=== PATIENT | male | born 1970 | race Caucasian/White ===

== ENCOUNTER → 2020-06-09 08:40 | Outpatient (CLI) | payer OTHER, SELFPAY ==
--- NOTE | ~2020-06-09 | XR_ITS ---
EXAMINATION: XR ankle LT min 3V DATE: 06/09/2020 09:05 INDICATION: Medial left ankle pain post twisting injury TECHNIQUE: Anteroposterior, oblique, mortise, and lateral views of the left ankle were obtained. COMPARISON: None. FINDINGS: Alignment is normal. No fracture. Joint spaces are well maintained. Moderate plantar calcaneal spur and small spur at the calcaneal insertion of the Achilles tendon. Mild soft tissue swelling about the lateral malleolus. IMPRESSION: 1. Calcaneal enthesophytes. No acute osseous abnormality. Reviewed, dictated and finalized at location A. NG ROW BOSS
== END ==
PROVIDERS: PCP Family Medicine; Visit Provider Family Medicine
DX: M77.32 Calcaneal spur, left foot (principal); M77.8 Other enthesopathies, not elsewhere classified
CPT/HCPCS: 73610

== ENCOUNTER → 2020-08-30 13:30 | Outpatient (CLI) | payer OTHER, SELFPAY ==
--- NOTE | ~2020-08-30 | MR_ITS ---
EXAMINATION: MR knee RT wo con DATE: 08/30/2020 14:11 INDICATION: Right knee pain TECHNIQUE: Magnetic resonance imaging (MRI) of the right knee was performed without intravenous contr ast. Sequences included coronal PD-weighted FSE, coronal PD-weighted FS FSE, sagittal T2-weighted FS E, sagittal PD-weighted FS FSE and axial PD weighted fat saturated FSE. COMPARISON: Right knee radiographs dated 08/23/2020 FINDINGS: Medial compartment: Medial meniscus is normal. Mild chondral surface regularity along the anterior weightbearing medial f emoral condyle. Mild chondral swelling along the lateral aspect of the medial tibial plateau along th e shoulder the intercondylar eminence. Lateral compartment: Lateral meniscus is normal. Partial-thickness chondral fissuring at the junction of the central and m id thirds of the lateral tibial plateau. Normal cartilage along the weightbearing lateral femoral con dyle. Patellofemoral compartment: Partial-thickness chondral fissuring at the cephalad third of the medial patellar facet. Small region of partial-thickness chondral fissuring at the inferior aspect of the medial trochlea. Ligaments and tendons: Anterior and posterior cruciate ligaments are normal. The medial collateral ligament and fibular ana ateral ligament complex are normal. The extensor mechanism is normal. The visualized medial and later al hamstring tendons as well as the iliotibial band are normal. Fluid: Physiologic amount of fluid in the joint space. No loose osteochondral bodies identified. Very small Eaton's cyst. Osseous/other: Normal marrow signal. No fracture or pathologic marrow replacing process. IMPRESSION: 1. 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 2. Very small Eaton's cyst. Reviewed, dictated and finalized at location B. BLE LINEMAN IMPRESSION: 1. Mild tricompartmental osteoarthritis with regions of moderate grade chondrom alacia in all 3 compartments. 2. Very small Eaton's cyst.
== END ==
PROVIDERS: PCP Family Medicine; Visit Provider Nurse Practitioner Family
DX: M17.11 Unilateral primary osteoarthritis, right knee (principal)
CPT/HCPCS: 73721

== ENCOUNTER 2020-10-12 15:00 | Outpatient (RCR) | payer OTHER, SELFPAY ==
--- NOTE | 2020-09-01 15:45 | PTOPEVAL ---
Thank you for referring Kalen Thurston to [facility].? The patient is scheduled to be seen for therapy? 2 x/week for 5 weeks. Please review, sign, date and return this plan of care DESI. I agree with and certify that the following plan of care is medically necessary. Referring Physician Date Attending Provider: Trey Milian MD Referring Provider: Trey Milian MD *PT Outpatient Evaluation Start: 09/01/20 14:26 Freq: Status: Active Protocol: Document 09/01/20 14:27 DONNA (Rec: 09/01/20 15:29 DONNA [id number]) Therapy Assessment Status Assessment Status Assessment Status Evaluation Outpatient Past Medical History Past Medical History Source of Past Medical History Patient,Recalled from Previous Visit, Confirmed with Patient /Family Gastrointestinal History Hx Gall Bladder Disease Yes Hx Other Gastrointestinal Disorders Yes: gallbladder removed Musculoskeletal History Hx Osteoporosis Yes: knee and ankle Hx Other Musculoskeletal Disorders Yes: left ankle pain and right knee pain Psychosocial History Hx Anxiety Yes Evaluation Information Problem Diagnosis left ankle deltiod sprain Onset January 2020 Cause twisted ankle in a hole Subjective Information He stepped in a hole in his Query Text:As Reported By Patient/ yard causing him to twist is Family ankle. Did not go to the ED following. He was seen by the MD last week due to cont pain. He reports limitation with walking for distance and speed due to pain. He is limited with negotiating steps. He wears a velcro brace on the ankle. Has not tried ice/heat . OTC pain cream. He does body work and household/yardwork projects. He works at a [employer] store. He is on his feet all day. Reports increased pain after prolonged standing with work. Diagnostic Tests X-Rays For This Problem Yes: Mild degenerative changes noted. Ankle mortise intact. Unchanged from inj Previous Treatments Previous Treatments For This Problem none Pain Assessment Timing of Pain Assessment Timing of Pain Assessment Assessment Pain Scale Pain Scale Used Numeric (1 - 10) Self Report Pain Assessment Left Ankle(s) Report
--- NOTE | 2020-10-12 15:47 | PTOPEVAL ---
Thank you for referring Kalen Thurston to [facility].? Pt has been seen for 11 therapy visits to address ankle and knee pain. He has improved with his joint motion, leg strength and pain with daily activities. He is independent with his home program at this time. He has reached maximal potential with skilled therapy services at this time. D/C skilled therapy services at this time. Please review, sign, date and return this discharge DESI. I agree with and certify that the following plan of care is medically necessary. Referring Physician Date Attending Provider: Trey Milian MD Referring Provider: Trey Milian MD Physical Therapy Discharge Note Diagnosis left ankle deltoid sprain Onset January 2020 Additional Evaluation Detail left knee pain He stepped in a hole in his yard causing him to twist is ankle. Subjective Information He reports he is able to Query Text:As Reported By Patient/ tolerate walking longer Family distance without increased pain. He is able to walk faster. He feels the leg press helps him walk better. 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 Denies changes in pain with prolonged standing with work. He is not wearing an velcro brace on the ankle. Pain Assessment Right Knee(s) Reported Pain Level 0 Lowest Pain Intensity 0 Greatest Pain Intensity 0 Left Ankle(s) Reported Pain Level 1 Pain Description Sharp Pain Frequency Intermittent Lowest Pain Intensity 1 Greatest Pain Intensity 1 Lower Extremity Range of Motion Left Ankle Dorsiflexion With Knee Extension 10 Range of Motion - Active Ankle Dorsiflexion With Knee Flexed 50 Range of Motion - Passive Ankle Eversion Range of Motion - Active 20 Ankle Inversion Range of Motion - Active 22 Lower Extremity Muscle Strength Testing Right Hip Flexion Strength 5 Normal Hip Extension Strength 5 Normal Hip Abduction Strength 4 Good Left Hip Flexion Strength 5 Normal Hip Extension Strength 5 Normal Hip Abduction Strength 4 Good Knee Strength Right Knee Flexion Strength 5 Normal Knee Extension Strength 5 Normal Left Knee Flexion Strength 5 Normal Knee Extension Strength 5 Normal Ankle Strength Left Ankle Dorsiflexion Strength 5 Normal Ankle Plantarflexion Strength 4- Good - Ankle Eversion Strength 5 Normal Ankle Inversion Strength 5 Normal
== END 2020-10-13 07:52 | disposition home or self-care (01) ==
LOC: ANHPT 15:00
PROVIDERS: PCP Family Medicine; Referring Provider Orthopaedic Surgery; Visit Provider Orthopaedic Surgery
DX: S93.422D Sprain of deltoid ligament of left ankle, subsequent encounter (principal)
CPT/HCPCS: 97035; 97110; 97112; 97116; 97161; 97530

== ENCOUNTER 2020-11-12 16:00 | Outpatient (CLI) | payer OTHER, SELFPAY ==
--- NOTE | ~2020-11-12 | MR_ITS ---
EXAMINATION: MR ankle LT wo con DATE: 11/12/2020 16:49 INDICATION: Left ankle pain. TECHNIQUE: Magnetic resonance imaging (MRI) of the left ankle was performed without intravenous contr ast. Sequences included sagittal PD-weighted FS FSE, sagittal PD-weighted FSE, coronal PD-weighted FS FSE, coronal PD-weighted FSE, axial PD-weighted FS FSE, and axial PD-weighted FSE. COMPARISON: Left ankle radiographs 08/23/2020 FINDINGS: Medial ankle ligaments: There are changes of prior sprain of the deltoid ligament characterized by partial tear of the superf icial component and some disorganized fibers in the deep component. Lateral ankle ligaments: There are changes of prior lateral ankle sprain characterized by thickening and increased signal in a nterior talofibular ligament at the fibular attachment. Calcaneofibular ligament and posterior talofi bular ligament are normal. There are changes of prior sprains of anterior and posterior tibiofibular ligaments characterized by thickening and increased signal intensity. Tendons: The anterior and medial ankle tendons are normal. The peroneal tendons are normal. There is mild Achi lles tendinopathy. There is an enthesophyte at the calcaneal attachment. Plantar fascia: The central band of the plantar fascia demonstrates thickening and increased signal intensity. There is an enthesophyte at the calcaneal attachment. Bones/other: Bone alignment is normal. No fracture. The talar dome is normal. There is mild osteoarthritis of calc aneocuboid joint. Fluid: There is no ankle joint effusion. There is edema in sinus Tarsi. IMPRESSION: 1. Changes of prior medial and lateral ankle sprains. 2. Plantar fasciitis. 3. Mild Achilles tendinopathy. 4. Mild osteoarthritis of calcaneocuboid joint. Reviewed, dictated and finalized at location A.
== END 2020-11-12 16:01 | disposition home or self-care (01) ==
PROVIDERS: PCP Family Medicine; Visit Provider Nurse Practitioner Family
DX: M72.2 Plantar fascial fibromatosis (principal); M19.072 Primary osteoarthritis, left ankle and foot
CPT/HCPCS: 73721

== ENCOUNTER 2021-11-24 00:20 | Day surgery (SDC) | payer OTHER, SELFPAY ==
[2021-11-14 11:03] VITALS: BMI 32.2
--- NOTE | 2021-11-23 11:14 | P.PNAN_ITS ---
Anes - Initial Pre Proc Eval Procedure: Operation Date: 11/24/21 07:30 Proposed Procedures p Screening Colonoscopy - Kimani Canas MD Date/Time: 11/23/21 11:14 Surgeon: Kimani Canas MD Pre Op Diagnosis: neoplasm screening Patient Data Age: 51 Gender: M Height: 1.78 m Weight: 102 kg Allergies Allergy/AdvReac Type Severity Reaction Status Date / Time No Known Allergies Allergy Mild Verified 11/24/21 06:31 Home Medications Medication Instructions Recorded Confirmed Type famotidine 40 mg tablet 40 mg PO DAILY #30 tablet 08/02/20 11/24/21 Rx lorazepam 0.5 mg tablet 0.5 mg PO TID PRN #30 tablet 08/02/20 11/24/21 Rx citalopram 20 mg tablet 20 mg PO DAILY #30 tablet 06/16/21 11/24/21 Rx Patient hx anesthesia problems: none Family hx anesthesia problems: none Results Review: All pre-operative results and documents have been reviewed as part of the pre-operative evaluation. [facility] Past Medical History Medical History (Updated 08/09/21 @ 17:14 by Pierre Nathan MD) Ankle sprain Anxiety Degenerative joint disease of knee Hearing loss IFG (impaired fasting glucose) Left ankle pain Medial meniscus tear Nervousness Right knee pain Tear of deltoid ligament of left ankle Vision changes Surgical History Surgical History History of cholecystectomy 02/16-Ruth Family History Family History Mother Carcinoma of colon Father Cerebrovascular accident Other Depression High cholesterol Hypertension Social History Social History Smoking status: Never smoker Second hand tobacco smoke exposure: No Alcohol intake: never Alcohol use details: rare Substance use: never Substance use type: does not use Living arrangements: with family Gender identity (if verbalized by the patient): Male Sexual Orientation (if Verbalized by the Patient): Straight or Heterosexual Spiritual care concerns: No Anes - Eval Final PreProcedure Day of Procedure 11/23/21 11:14 Patient weight: obese Heart: regular rate and rhythm Lungs: clear to auscultation and normal air movement Airway: Mallampati scale class II Neurological: alert and oriented Last oral intake: >/= 8 hours ASA classification: II Emergent: no Anesthetic plan: proceed Anesthesia type and monitoring: general GIVS and standard monitoring Results Review: All pre-operative results and documents have been reviewed as part of the pre-operative evaluation. Informed Consent: The patient's anesthetic plan and its attendant risks and benefits were discussed with the patient/family/POA. Questions were solicited and answers provided to the satisfaction of the patient/family/POA.
[2021-11-24 06:32] VITALS: BP 140/84; PULSE 96; RESP 16; TEMP 36.4; O2SAT 98; BMI 33.3
[2021-11-24] MEDS: LACTATED RINGERS 1,000 ML 150 ML IV CONT (06:40)
--- NOTE | 2021-11-24 06:52 | WPDGICN ---
Assessment and Plan Assessment and plan (1) Colon cancer screening: Code(s): Z12.11 - Encounter for screening for malignant neoplasm of colon Status: Acute Assessment and Plan: Colonoscopy with possible biopsy or polypectomy or cautery or injection of substances. (2) Family history of colon cancer: Code(s): Z80.0 - Family history of malignant neoplasm of digestive organs Status: Acute Assessment and Plan: I advised him to have a colonoscopy every 5 years due to the family history. His last exam was about 10 years ago GI Consult Note Consult date/time: 11/24/21 06:52 HPI: Kalen Thurston Jr. is a 51 year old male Referred for consideration for colonoscopy. He has a family history of colon cancer in that his mother developed stage IV colon cancer in her early 70s. His last colonoscopy was about 9 years ago. At present he is not having any significant lower gastrointestinal symptoms. He has 1/2 brother who has not yet had a colonoscopy. He denies weight loss nausea vomiting or other gastrointestinal symptoms. Review of Systems Review of Systems: All systems reviewed & are unremarkable except as noted in HPI and below PMFSH Past Medical History Medical History Ankle sprain Anxiety Degenerative joint disease of knee Hearing loss IFG (impaired fasting glucose) Left ankle pain Medial meniscus tear Nervousness Right knee pain Tear of deltoid ligament of left ankle Vision changes Surgical History Surgical History History of cholecystectomy 02/16-Ruth Family History Family History Mother Carcinoma of colon Father Cerebrovascular accident Other Depression High cholesterol Hypertension Social History Social History Smoking status: Never smoker Second hand tobacco smoke exposure: No Alcohol intake: never Alcohol use details: rare Substance use: never Substance use type: does not use Living arrangements: with family Gender identity (if verbalized by the patient): Male Sexual Orientation (if Verbalized by the Patient): Straight or Heterosexual Spiritual care concerns: No Meds Home Medications and Allergies Home Medications Medication Instructions Recorded Confirmed Type famotidine 40 mg tablet 40 mg PO DAILY #30 tablet 08/02/20 11/24/21 Rx lorazepam 0.5 mg tablet 0.5 mg PO TID PRN #30 tablet 08/02/20 11/24/21 Rx citalopram 20 mg tablet 20 mg PO DAILY #30 tablet 06/16/21 11/24/21 Rx Allergies Allergy/AdvReac Type Severity Reaction Status Date / Time No Known Allergies Allergy Mild Verified 11/24/21 06:31 Vital Signs Vital Signs - 24 hr 11/24/21 06:32 Temperature 36.4 C Pulse Rate 96 Respiratory Rate 16 Blood Pressure 140/84 Pulse Oximetry 98 Exam Const: General: alert Orientation/consciousness: patient oriented x3 Resp: Auscultation: clear to auscultation bilaterally Cardio: Rhythm: regular rhythm GI: GI Palp: Yes Soft to palpation and No Tenderness to palpation present (GI) Neuro: General: patient oriented x3
[2021-11-24 07:35] VITALS: BP 106/59; PULSE 84; RESP 20; O2SAT 96
[2021-11-24 07:45] VITALS: BP 103/64; PULSE 78; RESP 20; O2SAT 97
[2021-11-24 07:55] VITALS: BP 126/84; PULSE 70; RESP 20; O2SAT 96
== END 2021-11-24 08:09 | disposition home or self-care (01) ==
PROVIDERS: PCP Family Medicine; Visit Provider Internal Medicine Gastroenterology
PROC: 0DJD8ZZ Inspection of Lower Intestinal Tract, Via Natural or Artificial Opening Endoscopic (ICD-10-PCS; CPT 45378; principal; 2021-11-24 07:30)
DX: Z12.11 Encounter for screening for malignant neoplasm of colon (principal); Z80.0 Family history of malignant neoplasm of digestive organs; F41.9 Anxiety disorder, unspecified; E66.9 Obesity, unspecified; Z68.33 Body mass index [BMI] 33.0-33.9, adult
CPT/HCPCS: 45378; J2704; J7120

== ENCOUNTER 2023-10-03 07:36 | Outpatient (CLI) | payer OTHER, SELFPAY ==
[2023-10-03 08:07] LABS: Basophils Percent Auto 0.5 % (0.2-1.2); Eosinophils Absolute Auto 0.2 K/mm3 (0-0.3); Hematocrit 45.9 % (42.0-52.0); Immature Granulocyte Absolute 0.03 K/mm3 (0.00-0.031); Immature Granulocyte Percent A 0.5 % (0-0.5); Lymphocytes Absolute Auto 1.77 K/mm3 (0.9-3.2); Lymphocytes Percent Auto 31.1 % (18.3-44.2); Mean Corpuscular HGB Conc 34.9 g/dl (32-36); Mean Corpuscular Hemoglobin 31.8 pg (26-34); Mean Corpuscular Volume 91.3 fl (80-100); Mean Platelet Volume 11.4 fl (7.4-10.4); Monocytes Absolute Auto 0.7 K/mm3 (0.1-0.6); Monocytes Percent Auto 12.1 % (2.6-8.5); Neutrophils Percent Auto 52.8 % (45.5-73.1); Platelet Count Result 164 k/mm3 (150-375); Red Blood Count 5.03 M/mm3 (4.6-6.20); Red Cell Distribution Width 13.2 % (11.5-14.5); White Blood Count 5.7 K/mm3 (4.5-10.0)
[2023-10-03 08:20] LABS: Alanine Aminotransferase 35 U/L (6-50); Albumin Level 4.3 g/dL (3.5-5.1); Alkaline Phosphatase 78 U/L (38-126); Anion Gap 5 mmol/L (8-16); Aspartate Amino Transferase 35 U/L (17-59); Bilirubin,Total 1.3 mg/dL (0.2-1.3); Blood Urea Nitrogen 16 mg/dL (9-20); Calcium 9.1 mg/dL (8.4-10.2); Carbon Dioxide 28 mmol/L (22-30); Chloride 107 mmol/L (98-107); Cholesterol 176 mg/dL (0-200); Estimated Glomerular Filt Rate > 60; Glucose 122 mg/dL (65-110); HDL Direct 30 mg/dL; Potassium 4.1 mmol/L (3.4-5.0); Sodium 140 mmol/L (137-145); Triglycerides 282 mg/dL (<150)
[2023-10-03 08:22] LABS: Appearance Urine Clear (Clear); Bilirubin Urine Negative (Negative); Blood Urine Negative (Negative); Color Urine Yellow (Yellow); Glucose Urine UA Negative (Negative); Ketones Urine Negative (Negative); Leukocyte Esterase Ur Negative LEU/UL (NEGATIVE); Nitrate Urine Negative (Negative); Protein Urine Negative (Negative); Specific Grav Ur 1.025 (1.001-1.035); pH Urine 5.5 (5.0-9.0)
[2023-10-03 08:25] LABS: LDL Cholesterol Direct 89 mg/dL
[2023-10-03 08:29] LABS: Hemoglobin A1C 5.4 % (<5.7)
[2023-10-03 08:48] LABS: Prostate Specific Antigen 1.2 ng/mL (< OR = 4.0)
[2023-10-03 08:52] LABS: Vitamin D 25 Hydroxy 32.6 ng/mL
[2023-10-03 09:07] LABS: Add Urine Microscopic? NO
[2023-10-03 09:24] LABS: Folic Acid 12.1 ng/mL (2.76->20)
== END 2023-10-03 07:37 | disposition home or self-care (01) ==
LOC: ANHLAB 07:38
PROVIDERS: PCP Family Medicine; Visit Provider Physician Assistant
DX: Z12.5 Encounter for screening for malignant neoplasm of prostate (principal); E53.8 Deficiency of other specified B group vitamins; E55.9 Vitamin D deficiency, unspecified; R73.01 Impaired fasting glucose; G47.33 Obstructive sleep apnea (adult) (pediatric); Z00.00 Encounter for general adult medical examination without abnormal findings
CPT/HCPCS: 36415; 80053; 80061; 81003; 82306; 82607; 82746; 83036; 84153; 84443; 85025; G0103

== ENCOUNTER 2024-03-11 07:58 | Outpatient (CLI) | payer OTHER, SELFPAY ==
[2024-03-11 09:07] LABS: LDL Cholesterol Direct 65 mg/dL
[2024-03-11 09:52] LABS: Alanine Aminotransferase 33 U/L (6-50); Albumin Level 4.4 g/dL (3.5-5.1); Alkaline Phosphatase 72 U/L (38-126); Anion Gap 6 mmol/L (4-12); Aspartate Amino Transferase 32 U/L (17-59); Bilirubin,Total 0.9 mg/dL (0.2-1.3); Blood Urea Nitrogen 15 mg/dL (9-20); Calcium 8.8 mg/dL (8.4-10.2); Carbon Dioxide 32 mmol/L (22-30); Chloride 103 mmol/L (98-107); Cholesterol 191 mg/dL (0-200); Estimated Glomerular Filt Rate > 60; Glucose 125 mg/dL (65-110); Potassium 4.4 mmol/L (3.4-5.0); Sodium 141 mmol/L (137-145)
[2024-03-11 10:08] LABS: Triglycerides 924 mg/dL (<150)
[2024-03-11 11:45] LABS: Hemoglobin A1C 5.4 % (<5.7)
== END 2024-03-11 07:59 | disposition home or self-care (01) ==
LOC: ANHLAB 08:00
PROVIDERS: PCP Family Medicine; Visit Provider Physician Assistant Medical
DX: E78.5 Hyperlipidemia, unspecified (principal); I10 Essential (primary) hypertension; R73.01 Impaired fasting glucose
CPT/HCPCS: 36415; 80053; 80061; 83036

== ENCOUNTER 2024-06-18 08:21 | Outpatient (CLI) | payer OTHER, SELFPAY ==
[2024-06-18 09:06] LABS: Alanine Aminotransferase 31 U/L (6-50); Albumin Level 4.5 g/dL (3.5-5.1); Alkaline Phosphatase 79 U/L (38-126); Anion Gap 5 mmol/L (4-12); Aspartate Amino Transferase 28 U/L (17-59); Bilirubin,Total 1.1 mg/dL (0.2-1.3); Blood Urea Nitrogen 14 mg/dL (9-20); Calcium 9.2 mg/dL (8.4-10.2); Carbon Dioxide 29 mmol/L (22-30); Chloride 106 mmol/L (98-107); Cholesterol 185 mg/dL (0-200); Estimated Glomerular Filt Rate > 60; Glucose 118 mg/dL (65-110); HDL Direct 31 mg/dL; Potassium 4.1 mmol/L (3.4-5.0); Sodium 140 mmol/L (137-145); Triglycerides 310 mg/dL (<150)
[2024-06-18 09:18] LABS: LDL Cholesterol Direct 92 mg/dL
== END 2024-06-18 08:22 | disposition home or self-care (01) ==
LOC: ANHLAB 08:22
PROVIDERS: PCP Family Medicine; Visit Provider Physician Assistant Medical
DX: R73.01 Impaired fasting glucose (principal); E78.2 Mixed hyperlipidemia
CPT/HCPCS: 36415; 80053; 80061

== ENCOUNTER 2025-07-17 09:30 | Outpatient (CLI) | payer BC, SELFPAY ==
--- NOTE | 2025-07-22 12:26 | WPDHOLTEREM ---
Holter/Event Monitor Holter/Event Monitor Date of procedure: 07/17/25 Holter/Event Procedure: 3-7 Day Holter Monitor Indications: Chest pain Conclusion: 1. 3 days holter monitor on 07/17/25. 2. Underlying rhythm is sinus rhythm. HR range 41-131 bpm; average HR 70 bpm. HR at 41 bpm was on 07/19/25 at 6:54 am. 3. There are rare premature supraventricular complexes and rare supraventricular couplets. No supraventricular tachycardia. 4. There are rare premature ventricular complexes. No ventricular tachycardia. 5. No significant pauses greater than 3 seconds. 6. Patient reports 5 episodes of symptoms of chest pain which demonstrate sinus rhythm, HR range 74-89 bpm with 1 episode with PAC.
== END 2025-07-17 09:31 | disposition home or self-care (01) ==
PROVIDERS: PCP Family Medicine; Visit Provider Physician Assistant Medical
DX: I49.1 Atrial premature depolarization (principal); I49.3 Ventricular premature depolarization
CPT/HCPCS: 93242